=== PATIENT | female | born 1970 | race Hispanic/Latino ===

== ENCOUNTER 2017-09-05 17:03 | Emergency (ER) | payer MEDICAID, OTHER ==
[2017-09-05 17:40] LABS: BILIRUBIN,URINE Negative (NEGATIVE); COLOR,URINE Yellow (YELLOW); GLUCOSE, URINE (UA) Negative (NEGATIVE); KETONES,URINE Negative (NEGATIVE); LEUKOCYTE ESTERASE ,URINE Negative (NEGATIVE); NITRATE,URINE Negative (NEGATIVE); OCCULT BLOOD,URINE Trace (NEGATIVE); PH,URINE 7.5 (5.0-8.0); PROTEIN,URINE Negative (NEGATIVE)
[2017-09-05 17:42] LABS: APPEARANCE,URINE SLIGHTLY CLOUDY (CLEAR)
[2017-09-05 17:43] LABS: HCG,QUAL RESULT NEGATIVE (NEGATIVE)
[2017-09-05 17:46] LABS: BACTERIA,URINE Rare /HPF (None Seen); WBC,URINE 0-1 /HPF (0-1)
[2017-09-05 17:47] LABS: SQUAMOUS EPITHELIAL CELL,UR Moderate /HPF (0-2)
== END 2017-09-05 18:53 | disposition home or self-care (01) ==
LOC: EDH 17:03
DX: R10.9 Unspecified abdominal pain (principal)
CPT/HCPCS: 74176; 81001; 81025